=== PATIENT | male | born 1970 | race Caucasian/White ===

== ENCOUNTER 2022-12-09 09:44 | Emergency (ER) | payer MEDICARE, MEDICAID ==
[~2022-12-09] VITALS: Ht 170.2 cm; Wt 165.0 kg
[2022-12-09 10:12] VITALS: BP 116/70; PULSE 77; RESP 18; O2SAT 98
[2022-12-09] MEDS ORDERED: ACETAMINOPHEN 325MG TABLET PO NR (12:18)
[2022-12-09 13:25] VITALS: TEMP 98
[2022-12-09 13:50] LABS: BASOPHILS % 0.5 % (0.0-2.0); HEMATOCRIT. 48.4 % (42.0-52.0); HEMOGLOBIN. 16.2 g/dL (14.0-18.0); LYMPHOCYTES % 17.6 % (20.0-50.0); MEAN CORPUSCULAR HEMOGLOBIN 30.9 pg (28.0-32.0); MEAN CORPUSCULAR HGB CONC 33.3 g/dL (31.0-37.0); MEAN CORPUSCULAR VOLUME 92.6 fL (80.0-94.0); MEAN PLATELET VOLUME 8.3 fl (7.4-10.4); MONOCYTES % 7.6 % (2.0-8.0); NEUTROPHILS % 73.3 % (40.0-76.0); PLATELET 254 x1000/uL (130-400); RED BLOOD CELL COUNT 5.23 mill/uL (4.7-6.1); WHITE BLOOD COUNT 15.9 x1000/uL (4.5-11.0)
[2022-12-09 13:58] LABS: CHLORIDE 104 mEq/L (98-107); INDEX HEMOLYSI 1 (1-3); INDEX ICTERIC 1 (1-4); INDEX LIPEMIC 1 (1-3); POTASSIUM 3.8 mEq/L (3.5-5.1); SODIUM 134 mEq/L (136-145)
[2022-12-09 14:08] LABS: ALANINE AMINOTRANSFERASE 30 IU/L (13-61); ASPARTATE AMINOTRANSFERASE 42 IU/L (15-37); BILIRUBIN TOTAL 0.9 mg/dL (0.1-1.0); CALCIUM 9.6 mg/dL (8.5-10.1); CARBON DIOXIDE 21 mEq/L (21-32); CREATININE 0.8 mg/dL (0.6-1.3); PROTEIN TOTAL 8.7 g/dL (6.0-8.3); UREA NITROGEN BLOOD 11 mg/dL (7-21)
[2022-12-09 14:52] LABS: CLARITY URINE CLOUDY (CLEAR); COLOR URINE DARK YELLOW (YELLOW); GLUCOSE URINE NEGATIVE (NEGATIVE); KETONES URINE 1+ (NEGATIVE); LEUKOCYTE ESTERASE URINE TRACE (NEGATIVE); NITRITE URINE NEGATIVE (NEGATIVE); OCCULT BLOOD URINE NEGATIVE (NEGATIVE); PH URINE 5.5 (4.5-8.0); PROTEIN URINE TRACE (NEGATIVE); SPECIFIC GRAVITY URINE 1.027 (1.005-1.030)
[2022-12-09 15:04] LABS: GLUCOSE 105 mg/dL (70-105)
[2022-12-09 15:32] LABS: BACTERIA URINE 1+; MUCUS URINE 2+ /lpf (NONE/TRACE); RBC URINE 0-2 /hpf (0-2); SQUAMOUS EPITHELIAL CELL URINE NONE SEEN /lpf (RARE/1+)
[2022-12-09] MEDS ORDERED: LEVETIRACETAM 500MG TABLET PO ONE (19:15)
[2022-12-09] MEDS ORDERED: QUET300T2 MT (19:35)
[2022-12-09] MEDS ORDERED: KEPP500 MT (19:35)
[2022-12-09] MEDS ORDERED: IBUP-2030 MT (19:35)
[2022-12-09] MEDS ORDERED: AZIT250T12 MT (19:37)
[2022-12-09] MEDS ORDERED: IBUPROFEN 800MG TABLET PO ONE (19:45)
[2022-12-09] MEDS ORDERED: IBUPROFEN 400MG TABLET PO NR (20:00)
== END 2022-12-09 20:24 | disposition home or self-care (01) ==
LOC: ER 10:01
DX: S52.025A Nondisplaced fracture of olecranon process without intraarticular extension of left ulna, initial encounter for closed fracture (principal); J18.9 Pneumonia, unspecified organism; G40.909 Epilepsy, unspecified, not intractable, without status epilepticus; Z86.59 Personal history of other mental and behavioral disorders; Y04.0XXA Assault by unarmed brawl or fight, initial encounter; Y93.89 Activity, other specified; Y92.89 Other specified places as the place of occurrence of the external cause; Y99.8 Other external cause status
CPT/HCPCS: 36415; 70486; 71260; 73060; 73080; 74177; 80053; 81003; 85025; 99285; A4565